=== PATIENT | male | born 1980 | race Caucasian/White ===

== ENCOUNTER 2017-03-08 18:57 | Emergency (ER) | payer OTHER ==
--- NOTE | 2017-03-13 19:13 | ER ---
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 The patient denies any headaches or visual changes or chest pain, shortness of breath, or abdominal pain. EMS said the patient's temperature was 95% and blood pressure was normal, and the patient was not tachycardic, but mucous membranes were dry. The patient was given Zofran 4 mg IV and wrote and also 1 L of fluid normal saline bolus. In the ER, the patient states he felt better, received a second liter of bolus and temperature was 97.6. The patient's vitals were normal. Lab works were sent. The patient states he feels better and prefers to leave. The patient was informed that the labs are pending, and he says that if the labs are back and if abnormal, we can call him to return to the ER, and he promised to come back to the ER. The patient was discharged to home with diagnosis of dehydration and dizziness. Eduardo Ramsey MD/ stephanie JOB #: [id number] CC: Arash Goetz MD, Attending Physician UNKNOWN, Family Physician
== END 2017-03-08 20:30 | disposition home or self-care (01) ==
LOC: ER 18:57
DX: E86.0 Dehydration (principal); R42 Dizziness and giddiness; F17.210 Nicotine dependence, cigarettes, uncomplicated; Z88.0 Allergy status to penicillin

== ENCOUNTER 2017-03-09 00:12 | Emergency (ER) | payer OTHER ==
--- NOTE | 2017-03-13 19:13 | ER ---
ADMIT: 03/09/2017 RM/LOC: ER [facility] MR#: [id number] [address] [address] [address] [place] [address] Emergency Room Report SEX: M AGE: 36 : 1980 DATE: 03/09/2017 ADDENDUM: The patient brought here with nausea, vomiting, and being exposed to heat and have exertion, working at roadside for hours during the sunlight, and while in the ER, the patient received IV fluid 2 L and was discharged to home to be followed up for further lab works, the patient had increased CK of 600 in the ER, and repeat CK was taken and the rest of the labs are pending. The patient wanted to go home because he felt better. The patient stated that if the lab work was not normal, we can call him to come back. Lab work showed that the creatinine level is 2.5. The patient was recalled, and the CK was still in the range of 600, in the ER, the patient received another rapid creatinine level, which was 1.5, after talking the case with Dr. Braswell, we deemed it safe to send the patient home. We advised on taking p.o. oral fluids and also to follow up with Dr. Braswell's office as needed. Plan was discussed with the patient, and he appreciated and he prefers to go home and follow up with Dr. Braswell as needed. DIAGNOSES: 1. Acute kidney injury. 2. Rhabdomyolysis, improved. Eduardo Ramsey MD/ jasl JOB #: [id number] CC: Ashwin Bustillos MD, Attending Physician UNKNOWN, Family Physician
--- NOTE | 2017-03-13 19:13 | ER ---
ADMIT: 03/09/2017 RM/LOC: ER [facility] MR#: [id number] [address] [address] [address] [address] Emergency Room Report SEX: M AGE: 36 : 1980 DATE: 03/09/2017 HISTORY: The patient is a 36-year-old male with past medical history of childhood allegedly kidney stones, who came to the ER at first for feeling nausea and vomiting after working a few hours in the sun. The patient received Zofran and IV fluids in the ambulance and was brought to the ER and states that after receiving the fluids, he felt better and he wanted to leave the hospital. The patient received the 2nd L of fluid and lab works were sent. The 1st CK was in the range of 600 and 2nd CK was also taken and the rest of the lab works were pending. The patient states he feels good and he prefers to go home. He gave his contact number to call him back if by any chance there is any abnormality in the rest of the lab works. Following up the CK after 2 L of fluid still is in the range of 600, mildly increased to 620, the creatinine level was 2.5, and BUN was normal. I called the patient and he came back to the hospital. I talked to the patient and he states that he has no past medical history of chronic kidney disease and just has a history of kidney stone. At the moment, the patient had no complaints. PHYSICAL EXAMINATION: HEAD AND NECK: Mucous membranes are wet. CHEST: Clear. HEART: Normal heart sounds. ABDOMEN: Soft. The patient had no CVA tenderness and no rebound. EXTREMITIES: I did not see any swelling in the extremities and no tenderness in the extremities. The rest of the physical exam is noncontributory and normal. With the questionable diagnosis of acute kidney injury, rhabdomyolysis, Family Medicine was consulted, and the patient was admitted for further followups and treatments. Eduardo Ramsey MD/ stephanie JOB #: [id number] CC: Ashwin Bustillos MD, Attending Physician UNKNOWN, Family Physician
== END 2017-03-09 01:50 | disposition home or self-care (01) ==
LOC: ER 00:12
DX: N17.9 Acute kidney failure, unspecified (principal); M62.82 Rhabdomyolysis; Z87.442 Personal history of urinary calculi